=== PATIENT | male | born 1970 | race Two or more races ===

== ENCOUNTER → 2020-02-23 | Outpatient (CLI) | payer OTHER ==
[~2020-02-23] MED LIST: IOHEXOL 240 MG/ML 50ML VIAL. ONE; IOHEXOL 240 MG/ML 50ML VIAL. PO ONE
--- NOTE | 2020-02-23 14:56 | RAD ---
Examination: CT ABD PELV W/ORAL IV CONTRAST History: Hernia for the past 2 years Comparison/Correlation: None Findings: Axial images of the abdomen and pelvis were obtained following oral contrast administered. Sagittal and coronal reformatted images were provided. Visualized lung bases are clear. Fatty infiltration of the liver is notable. Partial resection of the left hepatic lobe anteriorly is seen. Low attenuation at the inferior aspect of the liver on axial image 49 is present but too small to characterize measuring 0.8 cm diameter and probably represents a cyst. Spleen, pancreas, and adrenal glands are normal. There are no radiopaque collecting system calculus or evidence of hydronephrosis. Urinary bladder is unremarkable. At the epigastric level, there is a midline ventral hernia defect measuring 2.5 cm transverse by 2.2 cm longitudinal attenuated omental fat. Slightly more inferiorly at the left mid to lower abdominal wall, there is a large hernia defect measuring 9.4 cm transverse by 6.6 cm longitudinal. Herniation of omental fat and a small segment of proximal transverse colon is noted. Smaller ventral hernia defects in the midline are present more inferiorly. At the left lower abdominal level superior to the level of the umbilicus, there is a hernia defect measuring 6.7 cm transverse by 6.6 cm longitudinal. Multiple contrast filled nondistended loops of small bowel are present within this hernia defect along with a large quantity of abdominal fat. No enlarged abdominal or pelvic lymph nodes. Lobulated contour of the prostate gland is present. Mildly enlarged prostate gland evident. Bony structures unremarkable. Impression: Multiple ventral abdominal wall hernia defects of varying sizes are present containing bowel. No obstruction. Marked fatty infiltration of the liver. PQRS Compliance Statement: One or more of the following individualized dose reduction techniques were utilized for this examination: 1. Automated exposure control 2. Adjustment of the mA and/or kV according to patient size 3. Use of iterative reconstruction technique Electronically signed by: Donovan Will MD (02/23/2020 2:54 PM) [facility]
== END | disposition home or self-care (01) ==
LOC: EEVIPCON 13:00 → CT 13:08
PROVIDERS: ATTEND Preventive Medicine Occupational Medicine
DX: K76.0 Fatty (change of) liver, not elsewhere classified (principal); K43.9 Ventral hernia without obstruction or gangrene; N40.0 Benign prostatic hyperplasia without lower urinary tract symptoms
CPT/HCPCS: 74177; Q9966

== ENCOUNTER → 2020-09-01 | Outpatient (CLI) | payer OTHER ==
[~2020-09-01] MED LIST changes: -IOHEXOL 240 MG/ML 50ML VIAL. ONE; -IOHEXOL 240 MG/ML 50ML VIAL. PO ONE; +IOHEXOL 300 MG/ML 75 ML VIAL. IV ONE
--- NOTE | 2020-09-01 13:50 | RAD ---
Examination: CT SOFT TISSUE NECK W/CONTRAST History: LUMP ON BACK OF NECK, MARKED WITH BB. PREVIOUS US REPORT SCANNED / Spl. Instructions: / History: Comparison/Correlation: Ultrasound of the neck report dated 07/22/2020 performed at an outside facility. Findings: Axial images of the neck were obtained following IV contrast. Sagittal and coronal reformatted images were provided. Review was performed from the supraorbital level to the aortic root level. Visualized posterior fossa is unremarkable. Orbits are unremarkable. Partial opacification of the left sinus with a large mucous retention cyst is present. Small right maxillary sinus mucous retention cyst also seen. Pharynx is symmetric. Epiglottis is normal. Parotid and submandibular glands are normal. No enlarged lymph nodes identified to involve the neck. True and false cords are symmetric. Thyroid gland is normal in appearance. Lung apices. Reversal of cervical lordosis is present. Neural foramina are widely patent. No significant degenerative change for the patient's age. At the posterior aspect of the lower neck superficial to musculature where a BB marker was placed, there is a 5.7 cm x 3.7 cm x 8.1 cm longitudinal lipoma present. There are thin septations within this. No solid nodule or suspicious mass component. Radiopaque density which may represent a bullet or other metallic density is present within the soft tissues of the right upper back just deep to the skin. Impression: Lipoma is identified corresponding to site of the palpable abnormality at the posterior aspect of the lower neck. No concerning features. PQRS Compliance Statement: One or more of the following individualized dose reduction techniques were utilized for this examination: 1. Automated exposure control 2. Adjustment of the mA and/or kV according to patient size 3. Use of iterative reconstruction technique Electronically signed by: Donovan Will MD (09/01/2020 1:47 PM) [id number]
== END | disposition home or self-care (01) ==
LOC: EEVIPCON 08:39 → CT 08:39
PROVIDERS: ATTEND Preventive Medicine Occupational Medicine
DX: R22.1 Localized swelling, mass and lump, neck (principal); D17.9 Benign lipomatous neoplasm, unspecified; M40.50 Lordosis, unspecified, site unspecified
CPT/HCPCS: 70491; Q9967